=== PATIENT | female | born 1975 | race Caucasian/White ===

== ENCOUNTER → 2016-05-29 | Outpatient (CLI) | payer BC ==
[~2016-05-29] MED LIST: INDSR/120 PO; LEVO200T6 PO; PRZ/40 PO; TOPI50TA16 PO
--- NOTE | 2016-05-29 18:06 | DIAGNOSTIC IMAGING REPORT ---
SINGLE VIEW PELVIS CLINICAL HISTORY: Fall. Pelvic pain. FINDINGS: An AP pelvic radiograph is correlated with pelvic CT dated 12/14/2007. The skeletal structures are well mineralized. No fracture is seen in the hips or bony pelvis. The joint spaces of the hips are preserved. The sacroiliac joints are normal in appearance. Numerous phleboliths are identified in the pelvis. The overlying soft tissues are within normal limits. IMPRESSION: No acute bony abnormality is seen in the hips or pelvis. Electronically signed by: Loi Navarro M.D. 05/29/2016 6:04 PM Dictated Date/Time: 05/29/2016 6:03 PM
--- NOTE | 2016-05-29 18:08 | DIAGNOSTIC IMAGING REPORT ---
LEFT HAND 3 VIEWS; LEFT FOURTH FINGER 3 VIEWS CLINICAL HISTORY: Fall with left hand and fourth finger pain. FINDINGS: 3 views of the left hand with 3 additional views of the left fourth finger are obtained. No prior studies are available for comparison at the time of dictation. The skeletal structures are well mineralized. No fracture is identified in the left hand. No fracture is seen in the fourth finger on the digital views. The joint spaces of the hand are well-maintained. The overlying soft tissues are within normal limits. IMPRESSION: No fracture is seen in the left hand or within the left fourth finger of the additional views. Electronically signed by: Loi Navarro M.D. 05/29/2016 6:07 PM Dictated Date/Time: 05/29/2016 6:05 PM
== END | disposition home or self-care (01) ==
LOC: C.RAD 17:20
PROVIDERS: ATTEND Family Medicine
DX: T14.8 Other injury of unspecified body region (principal); W19.XXXA Unspecified fall, initial encounter

== ENCOUNTER → 2016-09-10 | Day surgery (SDC) | payer BC ==
[2016-08-23 14:08] VITALS: Ht 165.1 cm; Wt 81.8 kg
[~2016-09-10] VITALS: Ht 165.1 cm; Wt 81.8 kg
[~2016-09-10] MED LIST changes: +ATROPINE SULFATE 0.1 MG/ML 5ML SYR IV PRN; +BUPIVACAINE/EPINEPHRINE 0.5% MPF 1:200,000 30 ML VIAL ONE; +CEFAZOLIN 2000 MG/60 ML D5W IV SCH; +DEXAMETHASONE SOD INJ 4 MG/ML VIAL ONE; +EpHEDrine SULFATE INJ 50 MG/ML AMP IV PRN; +FENTANYL CITRATE INJ 50 MCG/1 ML 2 ML VIAL ONE; +LACTATED RINGER'S 1000ML 1,000 ML IV SCH; +LIDOCAINE HCL 1% 20 ML VIAL ONE; +LIDOCAINE HCL 2% 2 ML VIAL (20MG/ML) ONE; +MIDAZOLAM HCL 1 MG/ML 2ML VIAL ONE; +MoRPHine SULFATE 2 MG/ML CARP IV PRN; +MoRPHine SULFATE 4 MG/ML 1 ML CARP\\VIAL IV PRN; +ONDANSETRON INJ 2 MG/ML 2 ML VIAL IV PRN; +ONDANSETRON INJ 2 MG/ML 2 ML VIAL ONE; +OXYCODONE/ACETAMINOPHEN 5-325 TAB PO PRN; +PROMETHAZINE HCL INJ 6.25 MG in SODIUM CHLORIDE 0.9% 50ML 50 ML IV PRN; +PROPOFOL IV EMULSION 10 MG/ML 20 ML VIAL IV ONE
--- NOTE | 2016-09-10 08:34 | History & Physical Bridge - SC ---
H&P Re-Evaluation Bridge Note: I have examined the patient, reviewed the History & Physical and in the interval since the performance of the History & Physical I have noted the following changes of clinical significance: No changes noted
--- NOTE | 2016-09-10 10:22 | [facility] Operative Report ---
Operative Report Operative Date Sep 10, 2016. Pre-Operative Diagnosis Right arm ulnar neuropathy Post-Operative Diagnosis same Procedure(s) Performed right ulnar neurolysis and exploration Surgeon Dr Moreno Inspector And Hand Packager Surgeon(s) Dr Brie Peter Estimated Blood Loss 5 ml Findings Constricted scarred in Ulnar Nerve proximally, at transposition site and distally. Fluids (cc crystalloids) 750 Specimens 0 Drains n/a Anesthesia LMA Complication(s) None Disposition Recovery Room / PACU (Stable) Implants N/A Indications The patient is a 41 year old female with worsening right ulnar nerve symptoms following a brief period of improvement following a recent ulnar nerve transposition January 22, 2016. She has had EMG/NCS studies since her previous surgery showing worsening conduction along the ulnar nerve at the elbow. The patient understands the risks of surgery, which include but are not limited to: bleeding, infection, re-operation, damage to nerves and arteries, repeat scarring, continued pain and DVT. The patient understands all of these instructions and explanations, all of their questions have been satisfactorily addressed. The patient has elected to proceed with surgery and the informed consent was signed. Description of Procedure The patient was taken to the Operating Room and placed in the supine position on the operating table. After general anesthetic was administered a multidisciplinary time-out was performed identifying my initials on the right upper limb as the correct and operative limb. Prior to the incision being made , 2 grams of intravenous Ancef were given. The right arm was prepped and draped in the standard orthopaedic sterile fashion. The patient's previous medial elbow incision was marked as well as the planned extension and approximately 1-2 cm proximally and distally. The incision was injected with a 50:50 mixture of 1% Lidocaine plain and 0.5% Marcaine for a total of 10 cc. The limb was exsanguinated with an Esmarch and a tourniquet was inflated to 250 mmHg. The incision was carefully carried down to the fascia. The ulnar nerve was first identified proximal to the medial epicondyles and it was initially exposed proximally. Care was taken to remove any adhesions as well as scar formation. There was significant scarring along the entire course of the ulnar nerve. The medial antebrachial cutaneous nerves were identified and preserved throughout. The nerve seemed to be significantly tethered to the scar and draw bridge flap that had been used for the previous transposition. The scar and the flap were carefully dissected off of the ulnar nerve and the nerve was further exposed distally into the 2 heads of the FCU. With gentle range of motion, the nerve did not subluxate. There was no tension on the nerve with full range of motion of the elbow. The wound was copiously irrigated. The skin was closed with 4-0 nylon in a horizontal mattress fashion. The incision was covered with Xeroform, 4x4's, ABD, sterile cast padding, and an JONAS. A sling was placed for comfort. The sponge and needle counts were correct. POST-OP INSTRUCTIONS: Pain medicine prescription was given pre-operatively to be taken as needed. Sling for comfort. No heavy lifting. The patient will follow up with me in 10- 15 days. I attest to the content of the Intraoperative Record and any orders documented therein. Any exceptions are noted below.
--- NOTE | 2016-09-10 10:24 | Discharge Instructions-SurgCtr ---
Discharge Instructions Date of Service Sep 10, 2016. Visit Reason for Visit: Right Arm Ulnar Neuropathy Discharge Discharge Diagnosis / Problem: Status post exploration/release right ulnar nerve Discharge Goals Goal(s): Decrease discomfort, Improve function, Increase independence Activity Recommendations Activity Limitations: per Instructions/Follow-up section Lifting Limitations: no more than 5 pounds May Resume Sexual Activity: when tolerated Shower/Bathe: may shower/bathe in 3 days Driving or Machine Use: Not while on Narcotics or wearing sling Anesthesia . Post Anesthesia Instructions: If you have had General Anesthesia or IV Sedation: * Do not drive today. * Resume driving when surgeon permits. * Do not make important decisions or sign legal documents today. * Call surgeon for: 1. Temperature elevations greater than 101 degrees F. 2. Uncontrollable pain. 3. Excessive bleeding. 4. Persistent nausea and vomiting. 5. Medication intolerance (nausea, vomiting or rash). * For nausea and vomiting use only clear liquids such as: tea, soda, bouillon until nausea subsides, then gradually increase diet as tolerated. * If you have any concerns or questions, call your surgeon's office. If physician is unavailable and it is an emergency, call 911 or go to the nearest emergency room. . Instructions / Follow-Up Instructions / Follow-Up Dr. Moreno in 10-15 days. PT in 2-3 days. Diet Recommendations Home Diet: resume previous diet Procedures Procedures Performed: right ulnar neurolysis and exploration Pending Studies Studies pending at discharge: no Medical Emergencies . Who to Call and When: Medical Emergencies: If at any time you feel your situation is an emergency, please call 911 immediately. . Non-Emergent Contact Non-Emergency issues call your: Surgeon Call Non-Emergent contact if: temperature is above 101.5, your pain is not controlled, wound has increased drainage, wound has increased redness . . "Provider Documentation" section prepared by Chalino Moreno. .
[2016-09-10] MEDS: FENTANYL CITRATE INJ 50 MCG/1 ML 2 ML VIAL IV PRN ×2 (11:09→11:16)
[2016-09-10 12:15] VITALS: TEMP 36.6
[2016-09-10 12:50] VITALS: BP 119/77; PULSE 74; O2SAT 97
--- NOTE | 2016-09-10 12:52 | Anesthesia Progress Nt - [facility] ---
Anesthesia Post Op Note Date & Time Sep 10, 2016 at 12:52 Vital Signs Pain Intensity: 3.0 Vital Signs Past 12 Hours Date Time Temp Pulse Resp B/P (MAP) Pulse Ox O2 Delivery O2 Flow Rate FiO2 09/10/16 12:15 36.6 65 16 120/73 (89) 98 Room Air 09/10/16 11:57 36.6 62 17 98 Room Air 09/10/16 11:38 64 15 96 09/10/16 11:38 65 15 09/10/16 11:37 67 18 96 09/10/16 11:37 67 18 09/10/16 11:35 114/79 09/10/16 11:35 114/79 09/10/16 11:33 69 18 09/10/16 11:33 69 18 97 09/10/16 11:32 70 16 09/10/16 11:32 71 16 95 09/10/16 11:30 122/69 09/10/16 11:30 122/69 09/10/16 11:28 71 16 96 09/10/16 11:28 71 16 09/10/16 11:27 68 15 09/10/16 11:27 67 15 96 09/10/16 11:25 122/76 09/10/16 11:25 122/76 09/10/16 11:23 78 26 09/10/16 11:23 81 26 98 09/10/16 11:22 72 16 09/10/16 11:22 73 16 100 09/10/16 11:20 118/78 09/10/16 11:20 118/78 09/10/16 11:18 70 16 100 09/10/16 11:18 71 16 09/10/16 11:17 68 14 100 09/10/16 11:17 73 14 09/10/16 11:15 118/79 09/10/16 11:15 118/79 09/10/16 11:13 66 15 09/10/16 11:13 66 15 96 09/10/16 11:12 72 18 96 09/10/16 11:12 72 18 09/10/16 11:10 125/77 09/10/16 11:10 125/77 09/10/16 11:08 76 18 99 09/10/16 11:08 74 18 09/10/16 11:07 76 17 09/10/16 11:07 78 17 98 09/10/16 11:05 123/74 09/10/16 11:05 123/74 09/10/16 11:03 68 17 09/10/16 11:03 68 17 100 09/10/16 11:02 65 16 100 09/10/16 11:02 65 16 09/10/16 11:01 123/74 09/10/16 11:01 123/74 09/10/16 10:58 63 16 09/10/16 10:58 62 16 100 09/10/16 10:57 65 16 100 09/10/16 10:57 66 16 09/10/16 10:56 129/76 09/10/16 10:56 129/76 09/10/16 10:53 75 32 100 09/10/16 10:53 75 32 100 09/10/16 10:53 77 32 09/10/16 10:53 77 32 09/10/16 10:51 132/75 09/10/16 10:51 132/75 09/10/16 10:48 68 14 09/10/16 10:48 67 14 100 09/10/16 10:48 67 14 100 09/10/16 10:48 68 14 09/10/16 10:46 131/88 09/10/16 10:46 131/88 09/10/16 10:45 135/76 09/10/16 10:45 135/76 09/10/16 10:44 36.2 77 16 135/76 100 Mask 09/10/16 07:08 36.8 51 18 124/84 (97) 100 Room Air Notes Mental Status: alert / awake / arousable, participated in evaluation Pt Amnestic to Procedure: Yes Nausea / Vomiting: adequately controlled Pain: adequately controlled Airway Patency, RR, SpO2: stable & adequate BP & HR: stable & adequate Hydration State: stable & adequate Anesthetic Complications: no major complications apparent
--- NOTE | 2016-09-10 14:33 | [facility] Operative Report ---
Operative Report Operative Date Sep 10, 2016. Pre-Operative Diagnosis Right arm ulnar neuropathy Post-Operative Diagnosis same Procedure(s) Performed right ulnar neurolysis and exploration Surgeon Dr Moreno Model Maker Scale Surgeon(s) Chalino Mcgee PA-C Estimated Blood Loss 5 ml Findings same Fluids (cc crystalloids) 750 Specimens 0 Drains none Anesthesia general Disposition Recovery Room / PACU Implants none Indications continued numbness and pain s/p right ulnar nerve decompression, surgery recommended, consents signed Description of Procedure taken to the OR, prepped and draped, I was present the entire case, please see Dr. Moreno's op note for further detail I attest to the content of the Intraoperative Record and any orders documented therein. Any exceptions are noted below.
== END | disposition home or self-care (01) ==
LOC: X.SURG 06:54
PROVIDERS: ATTEND Orthopaedic Surgery Sports Medicine
DX: G56.21 Lesion of ulnar nerve, right upper limb (principal); E05.00 Thyrotoxicosis with diffuse goiter without thyrotoxic crisis or storm; E03.9 Hypothyroidism, unspecified; E66.9 Obesity, unspecified; Z68.30 Body mass index [BMI] 30.0-30.9, adult; Z90.710 Acquired absence of both cervix and uterus; Z98.890 Other specified postprocedural states; Z80.3 Family history of malignant neoplasm of breast; Z82.49 Family history of ischemic heart disease and other diseases of the circulatory system; Z82.3 Family history of stroke

== ENCOUNTER → 2016-11-20 | Outpatient (CLI) | payer BC ==
[~2016-11-20] MED LIST changes: -ATROPINE SULFATE 0.1 MG/ML 5ML SYR IV PRN; -BUPIVACAINE/EPINEPHRINE 0.5% MPF 1:200,000 30 ML VIAL ONE; -CEFAZOLIN 2000 MG/60 ML D5W IV SCH; -DEXAMETHASONE SOD INJ 4 MG/ML VIAL ONE; -EpHEDrine SULFATE INJ 50 MG/ML AMP IV PRN; -FENTANYL CITRATE INJ 50 MCG/1 ML 2 ML VIAL ONE; -INDSR/120 PO; -LACTATED RINGER'S 1000ML 1,000 ML IV SCH; -LIDOCAINE HCL 1% 20 ML VIAL ONE; -LIDOCAINE HCL 2% 2 ML VIAL (20MG/ML) ONE; -MIDAZOLAM HCL 1 MG/ML 2ML VIAL ONE; -MoRPHine SULFATE 2 MG/ML CARP IV PRN; -MoRPHine SULFATE 4 MG/ML 1 ML CARP\\VIAL IV PRN; -ONDANSETRON INJ 2 MG/ML 2 ML VIAL IV PRN; -ONDANSETRON INJ 2 MG/ML 2 ML VIAL ONE; -OXYCODONE/ACETAMINOPHEN 5-325 TAB PO PRN; -PROMETHAZINE HCL INJ 6.25 MG in SODIUM CHLORIDE 0.9% 50ML 50 ML IV PRN; -PROPOFOL IV EMULSION 10 MG/ML 20 ML VIAL IV ONE
[2016-11-20 10:25] LABS: THYROID STIMULATING HORMONE < 0.005 uIu/ml (0.300-4.500)
== END | disposition home or self-care (01) ==
LOC: C.LAB1850 08:14
PROVIDERS: ATTEND Physician Assistant
DX: E89.0 Postprocedural hypothyroidism (principal)

== ENCOUNTER → 2017-02-19 | Outpatient (CLI) | payer BC | END | disposition home or self-care (01) | LOC: C.LAB1850 09:20 | PROVIDERS: ATTEND Physician Assistant | DX: E89.0 Postprocedural hypothyroidism (principal) ==

== ENCOUNTER → 2017-04-23 | Outpatient (CLI) | payer OTHER ==
--- NOTE | 2017-04-23 08:36 | DIAGNOSTIC IMAGING REPORT ---
CERVICAL WITHOUT CONTRAST CLINICAL HISTORY: 41 years-old Female presenting with CUBITAL TUNNEL SYNDROME, neck pain with reticular the, tingling in the right arm, history of 2 nerve releases with persistent symptoms. TECHNIQUE: Multisequence, multiplanar MR imaging of the cervical spine was performed without the use of intravenous contrast. IV contrast: None. COMPARISON: None. FINDINGS: Localizer images: Unremarkable. Straightening of normal cervical lordosis. Vertebral body heights, alignment, and bone marrow signal intensity preserved. Intervertebral disc heights preserved. No evidence of disc desiccation. There is a disc osteophyte complex at C6-7 with minimal eccentric effacement of the anterior thecal sac more significantly affecting the left lateral recess. This does not appear to exert mass effect on exiting nerve roots. Mild left neural foraminal narrowing at C3-4 secondary to uncovertebral hypertrophy. Mild neural foraminal narrowing also noted on the left at C5-6 and C6-7 secondary to uncovertebral hypertrophy. No significant right neural foraminal narrowing is evident. Cervical spinal cord normal in morphology and signal intensity. Craniocervical junction normal. Paraspinal soft tissues normal. IMPRESSION: 1. Mild left neural foraminal narrowing at C3-4, C5-6, and C6-7 secondary to uncovertebral hypertrophy. No significant right neural foraminal narrowing. 2. Disc osteophyte complex at C6-7 without significant spinal canal stenosis. Electronically signed by: Crescencio Hermosillo M.D. 04/23/2017 8:35 AM Dictated Date/Time: 04/23/2017 8:22 AM
== END | disposition home or self-care (01) ==
LOC: C.MRI 07:42
PROVIDERS: ATTEND Physical Medicine & Rehabilitation
DX: G56.21 Lesion of ulnar nerve, right upper limb (principal); M25.78 Osteophyte, vertebrae

== ENCOUNTER → 2017-05-19 | Outpatient (CLI) | payer OTHER ==
--- NOTE | 2017-05-20 07:57 | MAMMOGRAPHY REPORT ---
BILATERAL DIGITAL DIAGNOSTIC MAMMOGRAM TOMOSYNTHESIS WITH CAD AND TARGETED BILATERAL ULTRASOUND: 05/19 CLINICAL HISTORY: 41-year-old woman presents with a 6-8 week history of pain and an abnormal feeling in both axillae. Family history of breast cancer = sister. Also due for annual bilateral screening mammogram. TECHNIQUE: Bilateral breast tomosynthesis in addition to standard 2D mammography was performed. Curre nt study was also evaluated with a Computer Aided Detection (CAD) system. COMPARISON: Comparison is made to exams dated: 09/08/2015 mammogram and 02/22/2003 mammogram - [facility]. BREAST COMPOSITION: There are scattered areas of fibroglandular density in both breasts. FINDINGS: A square-shaped pain markers were placed in both axilla, denoting the areas of constant abn ormal sensation/pain pointed out by the patient. There is no evidence of skin thickening or suspicio us lymphadenopathy on the MLO views. The parenchymal pattern is similar to prior mammograms. No new suspicious breast masses, asymmetries, areas of architectural distortion or calcifications identifie d. Targeted ultrasound was performed in both axillae, extending medially to the far superior 12:00 axis, in the areas of abnormal sensation pointed out by the patient. On ultrasound, sonographically joceline l tissue is seen without a suspicious solid or cystic mass. A morphologically normal lymph node is i dentified in the left axilla. There is no evidence of lymphadenopathy. No focal skin thickening or drainable fluid collection. IMPRESSION: ACR BI-RADS CATEGORY 2: BENIGN, TARGETED ULTRASOUND ACR BI-RADS CATEGORY 2: BENIGN 1. Stable bilateral mammograms, without mammographic evidence of malignancy. No sonographic evidenc e of malignancy, suspicious lymphadenopathy or suspicious mass in the areas of abnormal sensation and pain in both axillae extending towards 12:00 in both breasts. Therefore, clinical follow-up is felipe mmended, as biopsy of a conically suspicious mass should not be precluded by negative imaging. Other squires recommend routine screening mammography in one year. Approximately 10% of breast cancers are not detected with mammography. A negative mammographic report should not delay biopsy if a clinically suggestive mass is present. Anuja Roger M.D. ay/:05/19/2017 10:12:45 Emergency Telecommunications Dispatcher: Loni HANSON(Deepti)(Jessica), [facility] letter sent: Normal 03/25 BI-RADS Code: ACR BI-RADS Category 2: Benign Ultrasound BI-RADS: ACR BI-RADS Category 2: Benign
== END | disposition home or self-care (01) ==
LOC: C.MAMM 09:09
PROVIDERS: ATTEND Family Medicine
DX: N64.4 Mastodynia (principal); R59.0 Localized enlarged lymph nodes

== ENCOUNTER → 2017-05-26 | Outpatient (CLI) | payer OTHER | END | disposition home or self-care (01) | LOC: C.LAB1850 08:59 | PROVIDERS: ATTEND Physician Assistant | DX: E89.0 Postprocedural hypothyroidism (principal) ==

== ENCOUNTER → 2017-05-28 | Outpatient (CLI) | payer OTHER ==
--- NOTE | 2017-05-28 07:06 | DIAGNOSTIC IMAGING REPORT ---
FUSION CT SINUSES W/O HISTORY: 42 years-old Female J30.9 Allergic [id number] chronic sinusitis COMPARISON: CT of the paranasal sinuses 06/23/2009 TECHNIQUE: Multiple axial CT images of the paranasal sinuses were obtained without contrast. Axial [employer] images were also submitted. A dose lowering technique was used consistent with the principals of CANDIE. FINDINGS: No acute intracranial abnormality identified. The imaged soft tissues and orbits are also within normal limits. Mastoid air cells and middle ear cavities are clear. Mild mucoperiosteal thickening of the bilateral maxillary sinuses. The left sphenoid sinus is capacious and clear. Minimal mucosal thickening involves the anterior lateral portion of the right sphenoid sinus. Left frontal sinus is clear. Mild mucoperiosteal thickening of the inferior right frontal sinus. Mild mucosal thickening of the ethmoid air cells both anteriorly and posteriorly and nasal turbinates with small left christopher bullosa. No Alyssa cell. Mild leftward bowing and spurring of the nasal septum. Bilateral maxillary ostiomeatal units and sphenoethmoidal recesses are patent. There is mild mucosal thickening and narrowing of the right frontal ethmoidal recess while the left frontoethmoidal recess is widely patent. The rikki mark appears normal. No facial bone fracture or dislocation. Mild facet arthrosis and uncovertebral spurring of the imaged cervical spine.. IMPRESSION: 1. Mild mucosal thickening of the paranasal sinuses and nasal turbinates as above with resultant mild narrowing of the right frontoethmoidal recess. The bilateral maxillary ostiomeatal units are widely patent. 2. Mild leftward bowing and spurring of the nasal septum. 3. Small left christopher bullosa. The above report was generated using voice recognition software. It may contain grammatical, syntax or spelling errors. Electronically signed by: Bill Garcia M.D. 05/28/2017 7:05 AM Dictated Date/Time: 05/28/2017 6:57 AM
== END | disposition home or self-care (01) ==
LOC: C.CTS 06:41
DX: J30.9 Allergic rhinitis, unspecified (principal); J34.9 Unspecified disorder of nose and nasal sinuses

== ENCOUNTER → 2017-08-13 | Outpatient (CLI) | payer OTHER ==
[2017-08-13 09:40] LABS: BASO % 2.3 %; BASO ABS # 0.08 K/uL (0-0.2); EOS % 0.3 %; EOS ABS # 0.01 K/uL (0-0.5); HEMATOCRIT 39.2 % (37-47); HEMOGLOBIN 13.7 g/dL (12.0-16.0); LYMPH % 43.6 %; MEAN CELL VOLUME 81.5 fL (80-100); MEAN CORPUSCULAR HEMOGLOBIN 28.5 pg (25-34); MEAN CORPUSCULAR HGB CONC 34.9 g/dl (32-36); MEAN PLATELET VOLUME 8.8 fL (7.4-10.4); MONO % 9.3 %; MONO ABS # 0.32 K/uL (0.11-0.59); NEUT % 44.5 %; NEUT ABS # 1.53 K/uL (1.4-6.5); PLATELET COUNT 217 K/uL (130-400); RED CELL DISTRIBUTION WIDTH CV 12.3 % (11.5-14.5); RED CELL DISTRIBUTION WIDTH SD 36.2 fL (36.4-46.3); WHITE BLOOD COUNT 3.44 K/uL (4.8-10.8)
[2017-08-13 09:47] LABS: PTT PATIENT 27.3 SECONDS (21.0-31.0)
[2017-08-13 10:04] LABS: POTASSIUM 4.2 mmol/L (3.5-5.1)
== END | disposition home or self-care (01) ==
LOC: C.LAB 08:49
DX: Z01.818 Encounter for other preprocedural examination (principal)